=== PATIENT | male | born 1995 | race Caucasian/White ===

== ENCOUNTER 2019-10-26 23:43 | Emergency (ER) | payer BC ==
[2019-10-26 23:46] VITALS: BP 138/77
--- NOTE | 2019-10-26 23:48 | ED ---
Lower Extremity - HPI Summary HPI Summary: 23-year-old male with no significant past medical history presents to the emergency department today complaining of right knee pain after injuring it and a basketball game this evening. Patient states he was running and came to a sudden stop which caused him to have pain. Patient arrives with an Kaela wrap in place with ice. Patient complains of pain to the lateral aspect of the right knee which is made worse with ambulation. Patient states he has not tried to ambulate since the event. The patient has full range of motion of the knee and is neurovascularly intact. There is no obvious deformity, edema, ecchymosis. Patient denies previous injuries of the knee or knee surgeries. Patient otherwise feels well and denies fever, chest pain, abdominal pain told him of urination, rash, nausea, vomiting, diarrhea. Surgical history and family history is noncontributory. Patient has taken ibuprofen prior to arrival. - History of Current Complaint Chief Complaint: EDExtremityLower Stated Complaint: R KNEE INJURY PER PT Time Seen by Provider: 10/26/19 23:48 Hx Obtained From: Patient Mechanism Of Injury: Twisted, Unknown Onset of Pain: Immediate, Hours Onset/Duration: Hours Severity Initially: Mild Severity Currently: Mild Pain Intensity: 3 Pain Scale Used: 0-10 Numeric Timing: Constant Location: Is Discrete @ - Right knee Character Of Pain: Aching Associated Signs And Symptoms: Positive: Knee Pain. Negative: Swelling, Redness , Bruising Aggravating Factor(s): Standing, Ambulation, Movement, Weight Bearing, Stairs Alleviating Factor(s): Rest - Allergies/Home Medications Allergies/Adverse Reactions: Allergies Allergy/AdvReac Type Severity Reaction Status Date / Time MS Penicillins [PCN] Allergy Rash Verified 12/02/12 11:07 Home Medications: Home Medications NK [No Home Medications Reported] 12/02/12 [History Confirmed 10/26/19] PMH/Surg Hx/FS Hx/Imm Hx GI History: Reports: Other GI Disorders - BLOOD IN STOOL IN 2011-PER MOM TREATED WITH ANTIBIOTICS STATED RESOLVED Musculoskeletal History: Denies: Hx Rheumatoid Arthritis, Hx Osteoporosis Sensory History: Denies: Hx Contacts or Glasses, Hx Hearing Aid Opthamlomology History: Denies: Hx Contacts or Glasses Infectious Disease History: No Infectious Disease History: Denies: Traveled Outside the [place] in Last 30 Days - Social History Substance Use Type: Reports: None Review of Systems Constitutional: Negative Eyes: Negative ENT: Negative Cardiovascular: Negative Respiratory: Negative Gastrointestinal: Negative Genitourinary: Negative Positive: Arthralgia, Decreased ROM Skin: Negative Neurological/Mental Status: Negative Psychological: Normal All Other Systems Reviewed And Are Negative: Yes Physical Exam - Summary Physical Exam Summary: Patient is in no acute distress. There is no obvious deformity, ecchymosis, edema, erythema to the right knee. Patient has full passive range of motion. No crepitus noted at the patella. Patient is able to straight leg raise. Negative anterior/posterior drawer. Negative Gaetano's test. Patient complains of pain to the lateral aspect of the right knee with varus stress. No pain with valgus stress. Triage Information Reviewed: Yes Vital Signs On Initial Exam: Initial Vitals Temp Pulse Resp BP Pulse Ox 99.1 F 71 18 138/77 98 10/26/19 23:43 10/26/19 23:43 10/26/19 23:43 10/26/19 23:43 10/26/19 23:43 Vital Signs Reviewed: Yes Appearance: Positive: Well-Appearing, No Pain Distress, Well-Nourished Skin: Positive: Warm, Skin Color Reflects Adequate Perfusion Eyes: Positive: EOMI, TIMUR ENT: Positive: Hearing grossly normal Respiratory/Lung Sounds: Positive: Clear to Auscultation, Breath Sounds Present Cardiovascular: Positive: RRR, S1, S2 Abdomen Description: Positive: Nontender, Soft Bowel Sounds: Positive: Present Musculoskeletal: Positive: Strength/ROM Intact Neurological: Positive: Sensory/Motor Intact, Alert, Oriented to Person Place, Time, Facial Symmetry, Speech Normal Psychiatric: Positive: Normal, Affect/Mood Appropriate AVPU Assessment: Alert Procedures - Sedation Patient Received Moderate/Deep Sedation with Procedure: No Diagnostics - Vital Signs Vital Signs Temp Pulse Resp BP Pulse Ox 10/26/19 23:43 99.1 F 71 18 138/77 98 - Laboratory Lab Statement: Any lab studies that have been ordered have been reviewed, and results considered in the medical decision making process. Lower Extremity Course/Dx - Course Course Of Treatment: Patient was evaluated in the emergency department today for right knee pain. Vitals noted and stable. Physical exam showed no evidence of trauma to ACL, PCL, meniscus. Patient is neurovascularly intact. X -ray was done which shows no evidence of fracture. It is likely patient suffered ligamentous injury at the lateral collateral ligament. Patient is able to ambulate. Patient given Kaela wrap to knee and discharged with orthopedic follow-up and told to practice R.I.C.E therapy. Patient discharged with outpatient follow-up. - Diagnoses Differential Diagnosis/HQI/PQRI: Positive: Arthritis, Contusion, Fracture ( Closed), Sprain, Strain Provider Diagnoses: Right knee pain Discharge ED - Sign-Out/Discharge Documenting (check all that apply): Patient Departure - Discharge Plan Condition: Stable Disposition: HOME Patient Education Materials: Knee Pain (ED) Referrals: Gurwinder Vaughn MD [Primary Care Provider] - Bernadine Dinero MD [Medical Doctor] - 3 Days Additional Instructions: * Ibuprofen 600mg three times daily with meals for pain. * Follow up with orthopedic physician in 3-5 days. * If numbness, tingling, decreased sensation, increased pain, temperature changes or pallor noted in toes, come back to the ER immediately. * Protect the area. Do not bear weight, pull or push with foot until follow up with orthopedics. * Rest the involved area. * Ice. Not directly on the skin. Cover with a towel. Apply ice no more than 30 minutes at a time * Compression: Continue with posterior splint until follow up with ortho. Do not get wet. * Elevate: Try to elevate the injured area above the heart whenever possible. - Billing Disposition and Condition Condition: STABLE Disposition: Home - Attestation Statements Provider Attestation: I was available for consult. This patient was seen by the JENSEN. The patient was not presented to, seen by, or examined by me. Joshua Viramontes MD
== END 2019-10-27 00:25 | disposition home or self-care (01) ==
LOC: ED 23:43
DX: M25.561 Pain in right knee (principal); Z88.0 Allergy status to penicillin
CPT/HCPCS: 99282

== ENCOUNTER 2019-11-17 05:46 | Day surgery (SDC) | payer BC ==
[~2019-11-17 05:46] MED LIST: Buffered Lidocaine 1% SYRIN* 1 ML/SYRINGE INTRADERM ONE
[2019-11-17] MEDS ORDERED: Lactated Ringers 1000 ML Bag* 1,000 ML IV SCH (06:00)
[2019-11-17] MEDS ORDERED: Clindamycin 900 MG/D5W BAG(*) 900 MG/50 ML BAG IVPB ONE (06:13)
[2019-11-17] MEDS ORDERED: ROPIVACAINE 5 MG/ML 30 ML BTL (0.5%) ONE (06:40)
[2019-11-17] MEDS ORDERED: Lidocaine 1% INJ* 10 MG/ML 30 ML SDV ONE (06:40)
[2019-11-17] MEDS ORDERED: Lidocaine 1% MPF ** 5 ML VIAL ONE (06:40)
[2019-11-17] MEDS ORDERED: EPINEPHRINE 1 MG/ML 1 ML VIAL ONE (07:00)
[2019-11-17] MEDS ORDERED: Bupivacaine 0.5% W/EPI SDV* 30 ML VIAL ONE (07:00)
[2019-11-17] MEDS ORDERED: Bupivacaine 0.5%* 50 ML MDV VIAL ONE (07:01)
[2019-11-17] MEDS ORDERED: fentaNYL* 50 MCG/ML 2 ML VIAL (100 MCG VIAL) ONE ×3 (07:06→11:24)
[2019-11-17] MEDS ORDERED: Glycopyrrolate IV* 0.2 MG/ML 1 ML VIAL ONE (07:06)
[2019-11-17] MEDS ORDERED: Propofol* 10 MG/ML 20 ML BTL ONE ×3 (07:06→10:39)
[2019-11-17] MEDS ORDERED: Midazolam* 1 MG/ML 2 ML VIAL (2 MG) ONE (07:09)
[2019-11-17] MEDS ORDERED: Rocuronium* 10 MG/ML VIAL ONE ×2 (07:11→08:11)
[2019-11-17] MEDS ORDERED: Ondansetron INJ* 2 MG/ML VIAL ONE (08:46)
[2019-11-17] MEDS ORDERED: Metoclopramide IV* 5 MG/ML 2 ML VIAL ONE (08:46)
[2019-11-17] MEDS ORDERED: Acetaminophen IV 1GM/100ML * 1,000 MG/100 ML VIAL IVPB ONE (09:11)
[2019-11-17] MEDS ORDERED: Naloxone* 0.4 MG/ML 1 ML VIAL IV PRN (09:11)
[2019-11-17] MEDS ORDERED: Sugammadex * 200 MG/2 ML VIAL IV PUSH ONE (09:19)
[2019-11-17] MEDS: fentaNYL* 50 MCG/ML 2 ML VIAL (100 MCG VIAL) IV PRN ×3 (11:25→12:27)
[2019-11-17 13:34] VITALS: BP 152/87
--- NOTE | 2019-11-19 01:35 | OP ---
OPERATIVE REPORT: DATE OF OPERATION: 11/17/19 DATE OF : 89 SURGEON: Jeremiah Mathew MD JUNIOR ESTIMATOR: CRYSTAL Vick A physician executive assistant was required for the length of the procedure for assistance with patient positi oning, retraction, instrumentation, knee manipulation, and closure. ANESTHESIOLOGIST: [facility] anesthesiologist. ANESTHESIA: General anesthesia, local anesthesia using Marcaine 0.5% without epinephrine, 30 cc. PRE-OP DIAGNOSES: 1. Right knee anterior cruciate ligament tear. 2. Right knee low-grade medial collateral ligament sprain. 3. Right knee displaced bucket-handle lateral meniscal tear, posterior horn and body. POST-OP DIAGNOSES: 1. Right knee anterior cruciate ligament tear. 2. Right knee low-grade medial collateral ligament sprain. 3. Right knee displaced bucket-handle lateral meniscal tear, posterior horn and body. OPERATIVE PROCEDURE: 1. Right knee arthroscopic ACL reconstruction with wngc-vsrabyw-yxwd autograft. 2. Right knee arthroscopic lateral meniscal repair using all-inside fixation. ANTIBIOTICS: Clindamycin 900 mg IV. IV FLUIDS: See Anesthesia note. [id number]-WV-[id number] TIME: 153 minutes. TOURNIQUET TIME: 120 minutes at 300 mmHg, right thigh tourniquet. SPECIMEN: None. IMPLANTS: Arthrex Bio[employer] interference screws, 8 mm x 20 mm in the femur and 9 mm x 30 mm in th e tibia. [employer]erra [employer] Fast-Fix 360 all-inside suture fixation devices x4 in the lateral meniscus . COMPLICATIONS: None. ESTIMATED BLOOD LOSS: Minimal. INDICATIONS FOR PROCEDURE: The patient is a 24-year-old man, currently unemployed, formerly working in [employer] and formerly playing in a semi-professional basketball league in [place], who injur ed his right knee on 10/26/19 while playing basketball. MRI demonstrated a full-thickness ACL tear a s well as a displaced lateral meniscus tear. It appeared as though there was a tear at the meniscoca psular junction of the posterior horn and posterior body of the lateral meniscus with displacement of a large flap all the way anterior in the lateral compartment. I met the patient in clinic on 11/07/19. Given the displaced meniscal tear, I offered him surgery th e following day, 11/08/19. However, that was not convenient for the patient or his family and so we scheduled the surgery for 11/17/19. I told the patient to remain nonweightbearing and use crutches u ntil surgery. Discussed the risks and potential complications of surgery. We discussed nonoperative and operative treatment of ACL tears. We discussed meniscus treatment including meniscal repair and partial menisc ectomy, short and mcc implications. We discussed different graft choices for ACL reconstructio n surgery, their benefits and disadvantages. The patient opted for an ACL reconstruction with lmgu-ducmkjz-rjng autograft. My plan was to repair his meniscus if it was repairable and I expected it to be so. DESCRIPTION OF PROCEDURE: In preoperative holding, the patient signed a written consent. Operative extremity was marked in preoperative holding. The patient was taken back to the operating room and p laced supine on the operating room table. Sedated and intubated. Bump was placed under the right hem ipelvis. Tourniquet was placed about the right proximal thigh. Right lower extremity was prepped an d draped. Surgical time-out performed. Lateral post had been applied to the table. Esmarch was appl ied and tourniquet was elevated. I made anterolateral knee arthroscopy portal. Commenced diagnostic arthroscopy. Articular cartilage in the patellofemoral compartment was pristine. Moved down to the medial compartment. No articular cartilage injury. No meniscus tear. Moved to the intracondylar notch. Confirmed ACL tear, full thi ckness. Moved to the lateral compartment and noted the displaced meniscal tear. Established anteromedial portal under direct visualization. Used a blunt switching stick to reduce t he lateral meniscus nicely in place. Besides just a tiny bit of fraying of the posterior horn centrally, the meniscus was in excellent con dition. This appeared to be a tear of the meniscocapsular junction, so with the meniscus repaired, o ne could not easily visualize the tear location. Working through both the anterolateral portal and then the primary or a secondary anteromedial portal , I placed 4 Fast-Fix suture anchors in the lateral meniscus. The first Fast-Fix was placed in the posterior horn. The second and third were placed in the body an d the fourth was placed in the posterior horn closer to the posterior root than the first had been. I stayed away from placing a Fast-Fix device through the lateral meniscus into the popliteal hiatus o r into the popliteus, so I did not place fixation into the junction between the posterior body and po sterior horn. I probed the meniscus and found it to be very stable after I performed the repair. I should note that my first Fast-Fix attempt led to premature filing of one of the two PEEK plastic c omponents. I therefore removed that PEEK component as well as almost all of the suture of that ancho r. The other PEEK component was already extracapsular outside the joint. So, I actually used 5 fixa tion devices but I removed almost all of the first fixation device. I then placed successfully 4 all - inside suture anchors. Done with the meniscal repair component of the procedure, I moved on to the ACL reconstruction. I ap plied the [facility] knee positioner. I made anterior longitudinal skin incision. Dissected down to the peritenon. Incised that longitudin ally in the midline. The patient was noted to have a very robust patellar tendon. I measured it to be at least 38 mm in width. I removed the graft first cutting my 10 mm patellar tendon width along t he length of the patellar tendon. I removed a 25 mm bone block from the patella and a bone block ilir ewhere between 32 and 35 mm in size from the tibial tuberosity. Patellar tendon was closed with buried lhiyah-wh-sttfr stitches using Ethibond 0 and Vicryl 0 suture. At the back table, I prepped the graft. It was a robust-looking patellar tendon tissue and robust-ap pearing bone. I contoured the 2 bone blocks. I removed any fat from the patellar tendon. I placed FiberWire #5 sutures, 1 proximally and 2 distally. I sized the graft. I held the graft under tensi on on the back table as I then returned to the knee. Performed notchplasty with an arthroscopic mykel after debriding much of the torn ACL. Used all the a ppropriate landmarks to pick the spot for the aperture of my femoral tunnel. Placed Beath pin with t he patient's knee in hyperflexion. I then drilled a 10 mm in diameter femoral tunnel, which was abou t 25 mm long. I collected bone from the tunnel using an arthroscopic shaver and a collecting reservo ir produced by [employer]. Placed the patient's knee back in 90 degrees of flexion. Using a tibial drill guide set of 57.5 degr ees, I used appropriate landmarks including the stump of the ACL ligament, the lateral meniscus, the PCL, and others and I placed a Beath pin and then drilled a 10 mm tibial tunnel. Placed passing suture and then placed my graft. Notched, then placed Nitinol wire, then tapped, then placed my femoral screw. There was much squeaking. Just as the femoral screw was fully seated into the tunnel, the threads of the screwdriver regional flatbed truck driver stopped engaging in the screw. This was a sign of how good that fixation was between the screw and bone block. Fully extended the knee. Notched, then placed Nitinol wire, then tapped, then placed screw. Placed screw with the graft under tension and a posterior drawer maneuver applied to the knee. The purchase of the screw was phenomenally good, perhaps the tightest that I have ever achieved on an ACL. I cho se a 30 mm screw in length because this was a longer tunnel. The graft ended right at the aperture o f the tunnel, perfect length. Examined the knee. No laxity whatsoever with Angélica's and anterior drawer maneuver. Arthroscoped t he knee and visualized a robust graft well positioned under good tension and a variety of knee flexio n positions. Removed instruments and fluid from knee. Closed fascia over the tibial tunnel aperture with figure-o f-eight stitches using Vicryl 0 suture. Closed arthroscopy portal sites with cabtkm-yt-rdejm stitche s using Vicryl 2.0 suture. Filled in bony defects of the patella and the tibia with autograft only. I used bone chips from my c ontouring work on the graft. I also used bone that had been collected in an Arthrex reservoir while shaving up bony fragments after I drilled my femoral and tibial tunnels. These bone chips were able to fill up fully, completely both the patellar and tibial bone defects. I then closed the peritenon with a running stitch using Vicryl 2.0 suture. I closed it up over the length of the incision. I then closed subcutaneous tissue with buried simple stitches using Vicryl 2.0 suture. I closed all skin incisions using nylon 3.0 suture. The long incision received a running stitch although other st ab incisions received jnfiws-dk-fxalw or 12 stitches. Local anesthesia was injected. Xeroform, 4x4's, ABDs, sterile Webril, and an Lenny bandage from foot t o groin. Cooling unit. A knee brace locked in extension. The patient awakened, extubated, and hernández sferred to the PACU. DISPOSITION: The patient will start physical therapy immediately. The patient is to be nonweightbea ring or toe-touch weightbearing for 6 weeks postoperatively because of the lateral meniscal repair. I chose to make a snrkc-qs-igbdsl 0 to 60 for the first 3 weeks and then 0 to 90 for weeks 4 through 6. He will then be on limited hdreg-tg-neyamb at 6 weeks postoperative. I will see him 10 to 14 day s postoperatively in clinic. The patient was to receive Percocet as needed for pain control, aspirin b.i.d. x2 weeks for DVT prophylaxis, and a short course of Bactrim b.i.d. for infection prophylaxis. Wound care instructions were provided. [id number]/[id number] #: [id number]
== END 2019-11-17 13:20 | disposition home or self-care (01) ==
LOC: OR 05:46
PROVIDERS: ATTEND Orthopaedic Surgery
DX: S83.511D Sprain of anterior cruciate ligament of right knee, subsequent encounter (principal); S83.251D Bucket-handle tear of lateral meniscus, current injury, right knee, subsequent encounter; S83.203D Other tear of unspecified meniscus, current injury, right knee, subsequent encounter; M25.561 Pain in right knee; Z88.0 Allergy status to penicillin; X50.1XXD Overexertion from prolonged static or awkward postures, subsequent encounter
CPT/HCPCS: C1713; J2250; J2405; J2704; J2765; J2795; J3010; J3490